=== PATIENT | male | born 1975 | race Caucasian/White ===

== ENCOUNTER 2024-04-04 11:40 | Day surgery (SDC) | payer OTHER ==
[~2024-04-04] VITALS: Ht 180.3 cm; Wt 97.1 kg
[~2024-04-04 11:40] MED LIST: IBUP400 PO; Lactated Ringer's 1,000 ML IV ONE; METOPROLOL TART25 MG PO; Ropivacaine 0.5% HCL/PF 5 MG/ML 30ML Vial ONE
[2024-04-04] MEDS ORDERED: CeFAZolin Sodium 2,000 MG VIAL ONE ×2 (11:52→13:58)
[2024-04-04] MEDS ORDERED: NS 50 ML IV ONE ×2 (11:55→13:59)
[2024-04-04] MEDS ORDERED: Lactated Ringer's 1,000 ML IV ONE (12:09)
--- NOTE | 2024-04-04 15:16 | NUR ---
04/04/24 1515 Simeon Foster PT INSTRUCTED TO MONITOR B/P AT HOME, AND FOLLOW UP WITH PCP NEEDED.
[2024-04-04 15:24] VITALS: BP 138/91
== END 2024-04-04 13:10 | disposition home or self-care (01) ==
LOC: ORSCSDS 11:40
PROVIDERS: Orthopaedic Surgery
PROC: 01N50ZZ Release Median Nerve, Open Approach (ICD-10-PCS; principal; 2024-04-04 13:30)
DX: G56.02 Carpal tunnel syndrome, left upper limb (principal); Z87.891 Personal history of nicotine dependence
CPT/HCPCS: J0690; J2795; J7120